=== PATIENT | female | born 1970 | race Caucasian/White ===

== ENCOUNTER → 2018-04-03 | Outpatient (CLI) | payer OTHER ==
[~2018-04-03] MED LIST: ALBU90OI61 INH; AMPDEX5 PO; CHLO25 PO; OXYACE5T PO; Pepcid40 MG PO
== END ==
LOC: LAB 11:00 → LAB SHORT 11:00
DX: F90.0 Attention-deficit hyperactivity disorder, predominantly inattentive type (principal)
CPT/HCPCS: G0480

== ENCOUNTER 2020-05-19 06:05 | Day surgery (SDC) | payer OTHER ==
[~2020-05-19] VITALS: Ht 152.4 cm; Wt 104.0 kg
== END 2020-05-19 08:57 | disposition home or self-care (01) ==
LOC: ORSCSDS 06:05
PROVIDERS: Obstetrics & Gynecology
PROC: 0UPD8HZ Removal of Contraceptive Device from Uterus and Cervix, Via Natural or Artificial Opening Endoscopic (ICD-10-PCS; principal; 2020-05-19 07:30)
DX: T83.32XD Displacement of intrauterine contraceptive device, subsequent encounter (principal); Z87.891 Personal history of nicotine dependence
CPT/HCPCS: 88300; J0690; J1100; J1885; J2250; J2405; J2704; J7120

== ENCOUNTER → 2021-06-23 | Outpatient (CLI) | payer OTHER | LOC: LAB 12:43 → LAB SHORT 12:43 | DX: L02.411 Cutaneous abscess of right axilla (principal); Z88.8 Allergy status to other drugs, medicaments and biological substances; Z88.5 Allergy status to narcotic agent | CPT/HCPCS: 87070; 87075; 87205 ==

== ENCOUNTER 2021-10-21 12:18 | Emergency (ER) | payer OTHER ==
[~2021-10-21] VITALS: Ht 152.4 cm; Wt 100.7 kg
== END 2021-10-21 13:38 | disposition home or self-care (01) ==
LOC: ER 12:18
DX: Z48.02 Encounter for removal of sutures (principal); I10 Essential (primary) hypertension; J45.909 Unspecified asthma, uncomplicated; Z79.899 Other long term (current) drug therapy; Z88.8 Allergy status to other drugs, medicaments and biological substances
CPT/HCPCS: 99281

== ENCOUNTER → 2024-04-02 | Outpatient (CLI) | payer OTHER | END | disposition home or self-care (01) | LOC: LAB 13:00 → LAB SHORT 13:00 | DX: F90.0 Attention-deficit hyperactivity disorder, predominantly inattentive type (principal); F50.81 Binge eating disorder ==